=== PATIENT | male | born 1955 | race Caucasian/White ===

== ENCOUNTER → 2022-12-08 | Outpatient (CLI) | payer MEDICARE, SELFPAY ==
[2022-12-08 12:38] LABS: Absolute Lymphocyte Count 1.99 X10^3/uL (0.83-4.51); Absolute Neutrophil Count 5.3 X10^3/uL (2.0-7.7); Basophil# 0.07 X10^3/uL; Basophil% 0.8 % (0-1); Eosinophil# 0.15 X10^3/uL; Eosinophils% 1.8 % (0-5); Hematocrit 46.3 % (40-54); Hemoglobin 15.1 g/dL (13.0-16.5); Lymphocyte # 1.99 X10^3/ul (0.83-4.51); Lymphocyte % 23.8 % (19-41); Mean Corp Hgb Conc 32.6 g/dL (32-36); Mean Corpuscular Volume 91.9 fL (80-94); Mean Platelet Vol. 12.3 fl (6.2-12.0); Monocyte# 0.82 X10^3/uL; Monocyte% 9.8 % (0-10); NRBC Flagged by Analyzer 0 % (0-5); Neutrophil % 63.3 % (47-70); Platelet Count 264 K/mm3 (150-450); RBC Distribution Width CV 13.5 % (11.6-14.6); RBC Distribution Width SD 45.6 fl (35.1-43.9); Red Blood Count 5.04 M/mm3 (4.6-6.2); White Blood Count 8.4 K/mm3 (4.4-11.0)
[2022-12-08 13:09] LABS: ALB/GLOB Ratio 0.8 RATIO (0.9-2.4); AST(SGOT) 16 U/L (15-37); Alanine Aminotransfer ALT/SGPT 27 U/L (16-61); Albumin, Serum 3.4 g/dL (3.2-5.0); Alkaline Phosphatase 90 U/L (45-117); Anion Gap 5 (5-15); BUN 14 mg/dL (7-18); BUN/Creat Ratio 17.5 RATIO (10-20); Chloride 107 mmol/L (98-107); Cholesterol 162 mg/dL (200); EST Glomerular Filtration Rate 102 mL/min (>60); Est Glom Filt Rate - Afr Amer 124 mL/min (>60); Glucose 92 mg/dL (74-106); High Density Lipoprotein 58 mg/dL; Potassium 4.7 mmol/L (3.5-5.1); Protein, Total 7.4 g/dL (6.4-8.2); Sodium Level 141 mmol/L (136-145); Triglycerides 77 mg/dL; Very Low Density Lipoprotein 15 mg/dL (5-40)
== END | disposition home or self-care (01) ==
LOC: BIMLAB 09:37
PROVIDERS: PCP Family Medicine; Visit Provider Internal Medicine
DX: Z13.6 Encounter for screening for cardiovascular disorders (principal)
CPT/HCPCS: 36415; 80053; 80061; 85025

== ENCOUNTER → 2022-12-15 | Outpatient (CLI) | payer MEDICARE, SELFPAY ==
--- NOTE | 2022-12-15 17:19 | CT_ITS ---
STUDY: LOW DOSE CT LUNG CANCER SCREENING REASON FOR EXAM: Male, 66 years old. screening RADIATION DOSAGE (If Supplied By Facility): CTDIvol = ( 3.02 ) mGy, DLP = ( 107.22 ) mGycm TECHNIQUE: No contrast was administered. Low dose technique was utilized (average mAS-38 and kVp 120). 1.25 mm axial source images with a slice interval of 1.25-mm were reconstructed in lung windows. 2.5 mm axial source images with a slice interval of 2.5-mm were reconstructed in lung windows. 5.0 mm axial source images with a slice interval of 5.0-mm were reconstructed in soft tissue windows. COMPARISON: None. Emphysema: Mild emphysema. No noncalcified nodule or mass. Endobronchial lesion: Gas containing filling defect along the right lateral wall of trachea likely consistent with mucus. Aorta: No aortic aneurysm. CORONARY ARTERIES: Coronary artery calcification is seen. Heart: No cardiomegaly. Pulmonary artery: Normal Mediastinal nodes: Normal Other chest and abdominal findings: Multiple hepatic cysts. CT/Low Dose CT Lung Screening IMPRESSION: Lung-RADS category 1 - Continue annual screening with LDCT in 12 months. IMPORTANT NOTES FOR USE: ACR Lung-RADS Version 1.1 Assessment Categories Release Date: 2018 Category: Coded 0-4 bases on nodule(s) with highest degree of suspicion. Negative screen is defined as categories 1 and 2; a positive screen is defined as categories 3 and 4. Category 3 and 4A nodules that are unchanged on interval CT should be coded as category 2, and individuals returned to screening in 12 months. Category 4X: Category 3 or 4 nodules with additional imaging findings that increase the suspicion of lung cancer, such as spiculation, GGN that doubles in size in 1 year, enlarged lymph notes, etc. Category Modifiers: S (significant finding unrelated to lung cancer) Electronically Signed: Abel Russell MD at 14:37 EDT ,
== END | disposition home or self-care (01) ==
LOC: CT 17:18
PROVIDERS: PCP Internal Medicine; Visit Provider Internal Medicine
DX: Z12.2 Encounter for screening for malignant neoplasm of respiratory organs (principal); F17.210 Nicotine dependence, cigarettes, uncomplicated
CPT/HCPCS: 71271

== ENCOUNTER → 2022-12-18 | Outpatient (CLI) | payer MEDICARE, SELFPAY ==
--- NOTE | 2022-12-18 08:50 | AAAS_ITS ---
Reason For Study: AAA Screening Aorta Measurements Aorta Doppler Measurements Proximal aorta measures2.56 x 2.54cm. in cross- Peak systolic flow velocities within the proximal sectional axis. aorta measure 74.1 cm/sec. Proximal aorta measures2.55cm. in longitudinal Peak systolic flow velocities within the mid aorta axis. measure 88.6 cm/sec. Mid aorta measures1.80 x 1.83cm. in cross- Peak systolic flow velocities within the distal sectional axis. aorta measure 104.9 cm/sec. Mid aorta measures1.76cm. in longitudinal axis. Distal aorta measures2.18 x 2.34cm. in cross- sectional axis. Distal aorta measures2.20cm. in longitudinal axis. Left Iliac Artery Left iliac artery measures 1.38 x 1.39 cm. in the cross-sectional axis. Left iliac artery measures 1.36 cm. in the longitudinal axis. Peak systolic velocity in the left iliac artery measures 95.6 cm/sec. Right Iliac Artery Right iliac artery measures 1.13 x 1.16 cm. in the cross-sectional axis. Right iliac artery measures 1.21 cm. in the longitudinal axis. Peak systolic velocity in the right iliac artery measures 86.8 cm/sec. Procedure Aorta IVC Iliac vasculature or bypass grafts 43694. Exam performed in department. VL/AAA Screening Interpretation Summary Aorta patent with ectasia 2.56 cm Bilateral iliac arteries patent, normal caliber Ordering Physician: Mariann Woodard Referring Physician: Mariann Woodard Performed By: Nina Coelho RVT
== END | disposition home or self-care (01) ==
PROVIDERS: PCP Internal Medicine; Referring Provider Internal Medicine; Visit Provider Internal Medicine
DX: Z13.6 Encounter for screening for cardiovascular disorders (principal)
CPT/HCPCS: 76706